=== PATIENT | female | born 1950 | race Caucasian/White ===

== ENCOUNTER 2017-04-14 11:59 | Inpatient (IN) | payer MEDICARE, MEDICAID ==
[~2017-04-14] VITALS: Ht 147.3 cm; Wt 89.1 kg
[2017-04-14] MEDS ORDERED: LORazepam 2 MG/ML VIAL ONE ×2 (12:03→12:22)
[2017-04-14] MEDS ORDERED: BUDE0.252 IH (12:13)
[2017-04-14] MEDS ORDERED: TIOT185 IH (12:13)
[2017-04-14] MEDS ORDERED: PHEN60TA15 PO ×2 (12:13)
[2017-04-14] MEDS ORDERED: FURO20 PO (12:13)
[2017-04-14] MEDS ORDERED: LACT30L PO (12:13)
[2017-04-14] MEDS ORDERED: LEVO75 PO (12:13)
[2017-04-14] MEDS ORDERED: RIVA15T PO (12:13)
[2017-04-14] MEDS ORDERED: OS500 PO (12:13)
[2017-04-14] MEDS ORDERED: RIVA20TA PO (12:13)
[2017-04-14] MEDS ORDERED: ESCI10TA PO (12:13)
[2017-04-14] MEDS ORDERED: LORazepam 2 MG/ML VIAL IVP ONE (12:20)
[2017-04-14 13:11] LABS: BASOPHILS % (AUTO) 0.3 % (0.0-2.0); EOSINOPHILS % (AUTO) 1.3 % (1.0-6.0); HEMATOCRIT 45.1 % (36-46); HEMOGLOBIN 14.3 g/dL (12.0-16.0); LYMPHOCYTES # (AUTO) 1.4 K/uL (1.0-4.8); LYMPHOCYTES % (AUTO) 16.3 % (22.0-44.0); MEAN CORPUSCULAR HEMOGLOBIN 31.4 pg (26.0-34.0); MEAN CORPUSCULAR HGB CONC 31.8 G/dL (31.0-37.0); MEAN CORPUSCULAR VOLUME 99 fL (80-100); MONOCYTES # (AUTO) 0.7 K/uL (0.1-1.0); MONOCYTES % (AUTO) 8.1 % (2.0-9.0); NEUTROPHILS # (AUTO) 6.3 K/uL (1.8-7.7); PLATELET COUNT (AUTO) 247 K/uL (150-450); RED BLOOD CELL COUNT(AUTO) 4.56 MIL/uL (4.00-5.20); RED CELL DISTRIBUTION WIDTH 14.4 % (11.5-14.5); WHITE BLOOD COUNT (AUTO) 8.6 K/uL (4.5-11.0)
[2017-04-14 13:33] LABS: ANION GAP 9 mmol/L (8-16); CALCIUM, TOTAL 8.3 mg/dL (8.8-10.5); CARBON DIOXIDE 27 mmol/L (22-29); CHLORIDE 102 mmol/L (98-107); CREATININE 0.67 mg/dL (0.60-1.30); GLOMERULAR FILTR. RATE CALC > 60 mL/min (>60); POTASSIUM 3.8 mmol/L (3.5-5.1); SODIUM SERUM 138 mmol/L (136-145); UREA NITROGEN, BLOOD 9 mg/dL (7-18)
[2017-04-14 13:37] LABS: ALANINE AMINOTRANSFERASE 20 U/L (12-78); ALBUMIN 2.6 g/dL (3.4-5.0); ASPARTATE AMINOTRANSFERASE 21 U/L (15-37); B-TYPE NATRIURETIC PEPTIDE 26 pg/mL (0-100); BILIRUBIN,TOTAL 0.2 mg/dL (0.1-1.0); CREATINE KINASE, TOTAL 71 U/L (26-192); PHENOBARBITAL 16 mcg/mL (15-40); TOTAL PROTEIN, SERUM 6.4 g/dL (6.4-8.2)
[2017-04-14 13:47] LABS: INR 1.1 (0.9-1.1); PROTHROMBIN TIME 11.8 SEC (9.4-11.6)
[2017-04-14] MEDS ORDERED: PHENobarbital SODIUM 65 MG/ML VIAL IVP ONE (16:30)
[2017-04-14] MEDS ORDERED: MORPHINE SULFATE 2 MG/ML SYRINGE IVP PRN (17:00)
[2017-04-14] MEDS ORDERED: LORazepam 2 MG/ML VIAL IM PRN (17:00)
[2017-04-14] MEDS ORDERED: ZOLPIDEM TARTRATE 5 MG TABLET PO PRN (17:00)
[2017-04-14] MEDS ORDERED: ONDANSETRON HCL 4 MG/2 ML VIAL IVP PRN (17:00)
[2017-04-14] MEDS ORDERED: HYDROCODONE/ACETAMINOPHEN 5-325 MG TABLET PO PRN (17:00)
[2017-04-14] MEDS ORDERED: BISACODYL 10 MG RECTAL RECTAL SUPPOSITORY PR PRN (17:00)
[2017-04-14] MEDS ORDERED: MAGNESIUM HYDROXIDE SUSPENSION 30 ML UDCUP PO PRN (17:00)
[2017-04-14] MEDS ORDERED: ACETAMINOPHEN 325 MG TABLET PO PRN (17:00)
[2017-04-14 17:11] LABS: APPEARANCE,URINE CLOUDY (CLEAR); GLUCOSE, URINE (UA) NEGATIVE (NEGATIVE); KETONES,URINE NEGATIVE (NEGATIVE); LEUKOCYTE ESTERASE ,URINE MODERATE (NEGATIVE); OCCULT BLOOD,URINE NEGATIVE (NEGATIVE); PH,URINE 5.5 (5.0-8.0); PROTEIN,URINE NEGATIVE (NEGATIVE)
[2017-04-14 17:26] LABS: ADD UA MICROSCOPIC YES
[2017-04-14 17:30] LABS: RBC,URINE 0-2 /HPF (0-2); SQUAMOUS EPITHELIAL CELL,UR Few /LPF (None Seen); WBC,URINE 26-50 /HPF (0-5)
[2017-04-14] MEDS ORDERED: CefTRIAXone 1 GM/DEXTROSE 50 ML IV ONE (17:45)
[2017-04-14 18:51] VITALS: BP 96/57
[2017-04-14 19:40] VITALS: BP 103/69
[2017-04-14] MEDS: DOCUSATE SODIUM 100 MG CAPSULE PO SCH (21:21)
[2017-04-14] MEDS: BUDESONIDE 180 MCG/INH INHALER [120] IH SCH (21:21)
[2017-04-14] MEDS: HEPARIN SODIUM,PORCINE 5,000 UNITS/ML VIAL SQ SCH (23:27)
[2017-04-14 23:35] VITALS: BP 109/56
[2017-04-15 04:07] VITALS: BP 97/54
[2017-04-15] MEDS ORDERED: LEVOTHYROXINE SODIUM 75 MCG TABLET PO SCH (06:30)
[2017-04-15 07:31] VITALS: BP 101/60
[2017-04-15] MEDS: HEPARIN SODIUM,PORCINE 5,000 UNITS/ML VIAL SQ SCH ×2 (08:39→17:17)
[2017-04-15] MEDS: DOCUSATE SODIUM 100 MG CAPSULE PO SCH (08:39)
[2017-04-15] MEDS: BUDESONIDE 180 MCG/INH INHALER [120] IH SCH (08:40)
[2017-04-15] MEDS ORDERED: TIOTROPIUM BROMIDE 18 MCG/INH HANDIHALER [5] IH SCH (09:00)
[2017-04-15] MEDS ORDERED: PANTOPRAZOLE SODIUM 40 MG DR TABLET PO SCH (09:00)
[2017-04-15] MEDS ORDERED: FUROSEMIDE 20 MG TABLET PO SCH (09:00)
[2017-04-15] MEDS ORDERED: PHENobarbital 30 MG TABLET PO SCH ×2 (09:00→21:00)
[2017-04-15] MEDS ORDERED: CALCIUM OYSTER SHELL 500 MG TABLET PO SCH (09:00)
[2017-04-15] MEDS ORDERED: LACTULOSE 20 GM/30 ML SOLUTION UDCUP PO SCH (09:00)
[2017-04-15] MEDS ORDERED: ESCITALOPRAM OXALATE 10 MG TABLET PO SCH (09:00)
[2017-04-15 11:38] VITALS: BP 103/69
[2017-04-15 15:37] VITALS: BP 110/63
[2017-04-15] MEDS ORDERED: CIPR-278 PO (17:23)
== END 2017-04-15 18:05 | DRG 101 ==
LOC: EMS 12:04 → 5N 16:41
PROVIDERS: ADMIT Internal Medicine; ATTEND Internal Medicine
DX: G40.909 Epilepsy, unspecified, not intractable, without status epilepticus (principal); N39.0 Urinary tract infection, site not specified; G93.89 Other specified disorders of brain; J44.9 Chronic obstructive pulmonary disease, unspecified; I48.91 Unspecified atrial fibrillation; E03.9 Hypothyroidism, unspecified; G89.29 Other chronic pain; I50.9 Heart failure, unspecified; F41.9 Anxiety disorder, unspecified; Z86.011 Personal history of benign neoplasm of the brain; Z98.2 Presence of cerebrospinal fluid drainage device; Z79.899 Other long term (current) drug therapy; Z98.84 Bariatric surgery status; Z79.01 Long term (current) use of anticoagulants; Z86.19 Personal history of other infectious and parasitic diseases
CPT/HCPCS: 70450; 87081; 87086; 93005; 96374; 96375; 99285; J0696; J1644; J2060; J2560; J3535